=== PATIENT | male | born 1950 | race African-American/Black ===

== ENCOUNTER 2017-09-19 03:45 | Emergency (ER) | payer SELFPAY ==
[~2017-09-19] VITALS: Ht 165.1 cm; Wt 54.0 kg
[2017-09-19] MEDS ORDERED: SODIUM CHLORIDE 0.9% 500 ML IV ONE (07:59)
[2017-09-19] MEDS ORDERED: CEFTRIAXONE 1 G PREMIX 50 ML IV ONE (08:00)
[2017-09-19 08:11] LABS: CLARITY URINE CLEAR (CLEAR); COLOR URINE YELLOW (YELLOW); KETONES URINE NEGATIVE (NEGATIVE); LEUKOCYTE ESTERASE URINE TRACE (NEGATIVE); NITRITE URINE NEGATIVE (NEGATIVE); OCCULT BLOOD URINE NEGATIVE (NEGATIVE); PH URINE >=9.0 (4.5-8.0); PROTEIN URINE NEGATIVE (NEGATIVE); SPECIFIC GRAVITY URINE 1.015 (1.005-1.030); UROBILINOGEN URINE 0.2 E.U./dL (0.2-1.0)
[2017-09-19 08:15] LABS: BASOPHILS % 0.3 % (0.0-2.0); CHLORIDE 103 mEq/L (98-107); EOSINOPHILS % 0.5 % (0.0-5.0); HEMATOCRIT. 38.3 % (42.0-52.0); HEMOGLOBIN. 12.6 g/dL (14.0-18.0); MEAN CORPUSCULAR HEMOGLOBIN 28.6 pg (28.0-32.0); MEAN CORPUSCULAR VOLUME 86.7 fL (80.0-94.0); MEAN PLATELET VOLUME 7.4 fl (7.4-10.4); NEUTROPHILS % 69.2 % (40.0-76.0); PLATELET 272 x1000/uL (130-400); RED BLOOD CELL COUNT 4.42 mill/uL (4.7-6.1); RED CELL DISTRIBUTION WIDTH 14.1 % (11.6-14.6)
[2017-09-19 08:17] LABS: INR 1.1; PARTIAL THROMBOPLASTIN TIME 27.6 sec (23.4-31.0); PROTHROMBIN TIME 11.5 sec (9.4-11.6)
[2017-09-19 08:21] LABS: CARBON DIOXIDE 29 mEq/L (21-32)
[2017-09-19 10:55] VITALS: BP 131/84
== END 2017-09-19 11:11 | disposition home or self-care (01) ==
LOC: ER 03:45
DX: N39.0 Urinary tract infection, site not specified (principal); I10 Essential (primary) hypertension; F03.90 Unspecified dementia, unspecified severity, without behavioral disturbance, psychotic disturbance, mood disturbance, and anxiety; J44.9 Chronic obstructive pulmonary disease, unspecified; Z86.73 Personal history of transient ischemic attack (TIA), and cerebral infarction without residual deficits
CPT/HCPCS: 36415; 80048; 81001; 85025; 85610; 85730; 87086; 96365; 99284; J0696; J7040; Z7610

== ENCOUNTER 2018-11-16 18:29 | Inpatient (IN) | payer MEDICARE, MEDICAID ==
[~2018-11-16] VITALS: Ht 172.7 cm; Wt 73.0 kg
[2018-11-16] MEDS ORDERED: SODIUM CHLORIDE 0.9% 1,000 ML IV ONE (22:20)
[2018-11-16] MEDS ORDERED: ONDANSETRON HCL 4MG/2ML INJ IV STA (22:20)
[2018-11-16] MEDS ORDERED: MORPHINE SULFATE 4 MG/ML CPJ (NOT FOR IM USE) IV STA (22:20)
[2018-11-16 23:02] LABS: BASOPHILS % 0.3 % (0.0-2.0); EOSINOPHILS % 1.2 % (0.0-5.0); HEMATOCRIT. 43.9 % (42.0-52.0); HEMOGLOBIN. 14.8 g/dL (14.0-18.0); LYMPHOCYTES % 14.4 % (20.0-50.0); MEAN CORPUSCULAR HEMOGLOBIN 29.6 pg (28.0-32.0); MEAN CORPUSCULAR VOLUME 88.1 fL (80.0-94.0); MEAN PLATELET VOLUME 7.7 fl (7.4-10.4); MONOCYTES % 4.9 % (2.0-8.0); NEUTROPHILS % 79.2 % (40.0-76.0); PLATELET 200 x1000/uL (130-400); RED BLOOD CELL COUNT 4.99 mill/uL (4.7-6.1); RED CELL DISTRIBUTION WIDTH 13.7 % (11.6-14.6)
[2018-11-16 23:07] LABS: CHLORIDE 106 mEq/L (98-107)
[2018-11-16 23:10] LABS: INR 1.1; PROTHROMBIN TIME 11.4 sec (9.1-11.1)
[2018-11-17] MEDS ORDERED: HYDRALAZINE 20MG/ML VIAL IV ONE (00:45)
[2018-11-17 01:00] LABS: CLARITY URINE CLOUDY (CLEAR); COLOR URINE YELLOW (YELLOW); KETONES URINE NEGATIVE (NEGATIVE); LEUKOCYTE ESTERASE URINE NEGATIVE (NEGATIVE); NITRITE URINE NEGATIVE (NEGATIVE); OCCULT BLOOD URINE NEGATIVE (NEGATIVE); PROTEIN URINE NEGATIVE (NEGATIVE); SPECIFIC GRAVITY URINE 1.024 (1.005-1.030)
[2018-11-17] MEDS ORDERED: MAGNESIUM/ALUMINUM HYDROXIDE/SIMETHICONE 30ML UDC PO PRN (01:00)
[2018-11-17] MEDS ORDERED: DOCUSATE SODIUM 100MG CAPSULE PO PRN (01:00)
[2018-11-17] MEDS ORDERED: ONDANSETRON HCL 4MG/2ML INJ IV PRN (01:00)
[2018-11-17] MEDS ORDERED: GUAIFENESIN 200MG/10ML SUGAR FREE UDC PO PRN (01:00)
[2018-11-17] MEDS ORDERED: ENOXAPARIN 40MG/0.4ML SYR SUBCUT SCH (01:00)
[2018-11-17] MEDS ORDERED: HYDROCODONE/APAP 7.5/325MG 1 TAB TABLET PO PRN (01:00)
[2018-11-17] MEDS ORDERED: ACETAMINOPHEN 325MG TABLET PO PRN (01:00)
[2018-11-17] MEDS: DEXT 5%/0.45% NACL 1000ML 1,000 ML IV SCH (02:49)
[2018-11-17 08:00] VITALS: BP 157/91
[2018-11-17] MEDS: MULTIVITAMINS,THER W-MINERALS TABLET PO SCH (10:19)
[2018-11-17] MEDS: AMLODIPINE 10MG TABLET PO SCH (10:19)
[2018-11-17] MEDS: ENOXAPARIN 40MG/0.4ML SYR SUBCUT SCH (10:20)
[2018-11-17 10:51] VITALS: BP 157/91
[2018-11-17 16:00] VITALS: BP 163/83
[2018-11-17] MEDS ORDERED: HALOPERIDOL LACTATE 5MG/ML VIAL IM PRN (17:45)
[2018-11-17 20:00] VITALS: BP 132/80
[2018-11-18] VITALS: BP 140/87
[2018-11-18 04:00] VITALS: BP 129/86
[2018-11-18 07:34] LABS: BASOPHILS % 0.2 % (0.0-2.0); EOSINOPHILS % 1.5 % (0.0-5.0); HEMOGLOBIN. 14.5 g/dL (14.0-18.0); LYMPHOCYTES % 29.4 % (20.0-50.0); MEAN CORPUSCULAR HEMOGLOBIN 29.6 pg (28.0-32.0); MEAN CORPUSCULAR VOLUME 87.8 fL (80.0-94.0); NEUTROPHILS % 59.9 % (40.0-76.0); PLATELET 198 x1000/uL (130-400); RED CELL DISTRIBUTION WIDTH 13.8 % (11.6-14.6)
[2018-11-18 07:43] LABS: CHLORIDE 107 mEq/L (98-107)
[2018-11-18 08:00] VITALS: BP 133/82
[2018-11-18] MEDS: MULTIVITAMINS,THER W-MINERALS TABLET PO SCH (08:25)
[2018-11-18] MEDS: AMLODIPINE 10MG TABLET PO SCH (08:25)
[2018-11-18] MEDS: ENOXAPARIN 40MG/0.4ML SYR SUBCUT SCH (08:26)
[2018-11-18] MEDS: CLONIDINE 0.1MG TABLET PO PRN (11:27)
[2018-11-18] MEDS: DEXT 5%/0.45% NACL 1000ML 1,000 ML IV SCH (11:40)
[2018-11-18 12:00] VITALS: BP 154/92
[2018-11-18 16:00] VITALS: BP 117/84
[2018-11-18 20:00] VITALS: BP 138/85
[2018-11-19] VITALS: BP 165/78
[2018-11-19] MEDS: CLONIDINE 0.1MG TABLET PO PRN ×2 (01:27→15:54)
[2018-11-19 04:00] VITALS: BP 110/66
[2018-11-19] MEDS: DEXT 5%/0.45% NACL 1000ML 1,000 ML IV SCH ×2 (04:40→21:25)
[2018-11-19 08:00] VITALS: BP 109/72
[2018-11-19] MEDS: AMLODIPINE 10MG TABLET PO SCH (08:29)
[2018-11-19] MEDS: MULTIVITAMINS,THER W-MINERALS TABLET PO SCH (08:42)
[2018-11-19] MEDS: ENOXAPARIN 40MG/0.4ML SYR SUBCUT SCH (08:42)
[2018-11-19 12:00] VITALS: BP 138/86
[2018-11-19 16:00] VITALS: BP 144/93
[2018-11-19 20:00] VITALS: BP 125/82
[2018-11-20] VITALS: BP 131/68
[2018-11-20 04:00] VITALS: BP 117/83
[2018-11-20 08:00] VITALS: BP 109/83
[2018-11-20] MEDS: MULTIVITAMINS,THER W-MINERALS TABLET PO SCH (08:56)
[2018-11-20] MEDS: AMLODIPINE 10MG TABLET PO SCH (08:57)
[2018-11-20] MEDS: ENOXAPARIN 40MG/0.4ML SYR SUBCUT SCH (09:52)
[2018-11-20 12:00] VITALS: BP 106/71
[2018-11-20] MEDS: DEXT 5%/0.45% NACL 1000ML 1,000 ML IV SCH (14:53)
[2018-11-20] MEDS: CLONIDINE 0.1MG TABLET PO PRN (15:59)
[2018-11-20 16:00] VITALS: BP 153/111
[2018-11-20 20:00] VITALS: BP 139/87
[2018-11-21] VITALS: BP 136/87
[2018-11-21 04:00] VITALS: BP 144/86
[2018-11-21 08:00] VITALS: BP 127/87
[2018-11-21] MEDS: MULTIVITAMINS,THER W-MINERALS TABLET PO SCH (08:44)
[2018-11-21] MEDS: ENOXAPARIN 40MG/0.4ML SYR SUBCUT SCH (08:44)
[2018-11-21] MEDS: AMLODIPINE 10MG TABLET PO SCH (08:44)
[2018-11-21 12:00] VITALS: BP 133/91
[2018-11-21 13:11] VITALS: BP 127/81
== END 2018-11-21 14:22 | disposition home or self-care (01) | DRG 446 ==
LOC: ER 19:08 → 7WST 11-17 00:42 → EDBEDREQ 11-17 00:45 → EDBEDREQTM 11-17 00:45 → EDBEDREQDT 11-17 00:45 → ENRESERV 11-17 07:24 → 7WST 11-17 10:29 → 6EST 11-17 12:14
PROVIDERS: ADMIT Hospitalist; ATTEND Hospitalist
DX: K80.20 Calculus of gallbladder without cholecystitis without obstruction (principal); I16.0 Hypertensive urgency; I10 Essential (primary) hypertension; J44.9 Chronic obstructive pulmonary disease, unspecified; Z86.73 Personal history of transient ischemic attack (TIA), and cerebral infarction without residual deficits; F03.90 Unspecified dementia, unspecified severity, without behavioral disturbance, psychotic disturbance, mood disturbance, and anxiety
CPT/HCPCS: 36415; 74176; 76700; 83605; 84484; 93970; 96361; 96374; 96375; 99285; J0360; J1630; J1650; J2270; J2405; J7030; J7040